=== PATIENT | female | born 1970 | race African-American/Black ===

== ENCOUNTER 2018-08-21 02:59 | Emergency (ER) | payer OTHER, MEDICAID ==
[~2018-08-21] VITALS: Ht 170.2 cm; Wt 100.0 kg
[~2018-08-21 02:59] MED LIST: IRON; LISINOPRIL
[2018-08-21] MEDS ORDERED: KETOROLAC 60MG/2ML VIAL IM ONE (04:15)
[2018-08-21 05:52] VITALS: BP 108/44
== END 2018-08-21 05:55 | disposition home or self-care (01) ==
LOC: ER 04:24
DX: M75.31 Calcific tendinitis of right shoulder (principal); I10 Essential (primary) hypertension; F17.200 Nicotine dependence, unspecified, uncomplicated; Z88.0 Allergy status to penicillin; Z79.899 Other long term (current) drug therapy
CPT/HCPCS: 73030; 81025; 96372; 99283; J1885